=== PATIENT | female | born 1965 | race Caucasian/White ===

== ENCOUNTER 2025-01-19 08:15 | Emergency (ER) | payer SELFPAY ==
[2025-01-19 08:20] VITALS: BP 147/105; PULSE 80; RESP 18; TEMP 36.9; O2SAT 100
--- NOTE | 2025-01-19 08:33 | PC.NURSE ---
patient states that she was doing a parasite cleanse and it started creating pressure in sinuses and ear and was seen at the ER and got ear drops and that wasn't helping, states that she was seen at urgent care where she was given antibiotics and steroids - patient states that she started having bad side effects including anxiety, stress, and she stopped taking the steroid but finished the azithromycin.
[2025-01-19] MEDS: MECLIZINE HCL 25 MG TABLET PO (09:37)
--- NOTE | 2025-01-19 09:37 | ED.EAR ---
HPI - Ear Problem General Chief complaint: Ear Stated complaint: Ear/Sinus infection, Hearing Loss Time Seen by Provider: 01/19/25 08:34 History of Present Illness HPI Narrative: patient is a 59-year-old female who presents ER with left-sided ear issues. She is having trouble hearing. She has been on oral antibiotics as well as An oral steroid. The steroid caused her some anxiousness so she discontinued it. patient gets occasional lightheadedness and nausea. No spinning dizziness. Mild frontal sinus pressure. Related Data Allergies Allergy/AdvReac Type Severity Reaction Status Date / Time Penicillins Allergy Mild Unknown Verified 01/19/25 08:23 Review of Systems Constitutional: Constitutional: Reports no additional constitutional complaints Eyes: Eyes: Reports no additional eye complaints ENT: Reports system reviewed and no additional complaints, except as documented Respiratory: Respiratory: Reports no additional respiratory complaints PMFSH Past Medical History Medical History (Updated 01/19/25 @ 09:43 by John Mccormick MD) Healthy female adult Exam Narrative: GENERAL: Well-appearing, well-nourished, and in no acute distress. HEAD: Normocephalic, atraumatic. EYES: PERRL and EOMI. ENT: Mucous membranes moist. left ear cerumen impaction. After removal impaction bilateral TMs are normal in appearance. CHEST: Clear to auscultation. No respiratory distress. HEART: Regular rate and rhythm. Normal peripheral pulses. EXTREMITIES: Normal range of motion. No edema. NEURO: Alert and oriented x3. PSYCH: Normal mood and affect. Course Course Emergency Course: With ear manipulation she has had some audible popping. After the removal of cerumen she has better hearing and decreased pressure. Will treat with some meclizine as well. Appropriate for discharge home. Vital Signs Vital signs: Vital Signs Temperature 98.5 F 01/19/25 08:20 Pulse Rate 80 01/19/25 08:20 Respiratory Rate 18 01/19/25 08:20 Blood Pressure 147/105 H 01/19/25 08:20 Pulse Oximetry 100 01/19/25 08:20 Oxygen Delivery Room Air 01/19/25 08:20 Temperature 98.5 F 01/19/25 08:20 Pulse Rate 80 01/19/25 08:20 Respiratory Rate 18 01/19/25 08:20 Blood Pressure 147/105 H 01/19/25 08:20 Pulse Oximetry 100 01/19/25 08:20 Oxygen Delivery Room Air 01/19/25 08:20 Procedures Ear Wax Removal Left Ear: Results: Re-examined: cerumen removed completely TM Examination: TM(s) intact, normal appearance Ear Canal Exam: atraumatic Patient Tolerated Procedure: well Complications: no problems Technique: ear canal irrigated Medical Decision Making Differential Diagnosis Differential Diagnosis: Ear foreign body, cerumen impaction, otitis media, vertigo, Meniere's disease Vital Signs Vital Signs: Vital Signs Temperature 98.5 F 01/19/25 08:20 Pulse Rate 80 01/19/25 08:20 Respiratory Rate 18 01/19/25 08:20 Blood Pressure 147/105 H 01/19/25 08:20 Pulse Oximetry 100 01/19/25 08:20 Oxygen Delivery Room Air 01/19/25 08:20 Temperature 98.5 F 01/19/25 08:20 Pulse Rate 80 01/19/25 08:20 Respiratory Rate 18 01/19/25 08:20 Blood Pressure 147/105 H 01/19/25 08:20 Pulse Oximetry 100 01/19/25 08:20 Oxygen Delivery Room Air 01/19/25 08:20 Discharge Plan Discharge Clinical Impression: Cerumen impaction Patient Disposition: Home Condition: Stable Instructions: Carbamide Peroxide (Into the ear) Additional Instructions: return the ER if you have weakness of an arm or leg, have fever 100.4? F, or you have additional concerns. Take meclizine to help with pressure behind her ear. You can use Cerumenex to prevent buildup of ear wax. Patient Language: Hungarian Prescriptions: New Debrox 6.5 % drops 5 drp EACH EAR Q12H 4 Days Qty: 15 0RF meclizine 25 mg tablet 25 mg PO TID PRN (Reason: motion sickness) Qty: 20 0RF Follow-up/Referrals: PHYSICIAN,SURGICAL INSTRUMENTS INSPECTOR [Primary Care Provider, Internal Medicine] Sherman Saini MD [Physician, Family Practice] - 1 Week
[2025-01-19 09:49] VITALS: BP 139/92; PULSE 68; RESP 18; O2SAT 98
== END 2025-01-19 09:51 | disposition home or self-care (01) ==
PROVIDERS: Emergency Provider Emergency Medicine
DX: H61.22 Impacted cerumen, left ear (principal)
CPT/HCPCS: 69209; 99283; A9270